=== PATIENT | female | born 1980 | race Hispanic/Latino ===

== ENCOUNTER 2020-11-20 12:12 | Emergency (ER) | payer BC ==
[2020-11-20 13:48] LABS: Absolute Lymphocytes (CBC) 1.4 K/uL (0.7-4.9); Basophils % 0.3 % (0-1.3); Hematocrit 36.6 % (36.0-45.0); Lymphocytes % 22.6 % (15.3-44.8); MPV 8.5 fL (7.6-11.3); RBC Red Blood Cell Count 4.41 M/uL (3.86-4.86)
[2020-11-20 14:06] LABS: Protime INR 1.09
[2020-11-20 14:07] LABS: ALT/SGPT 98 U/L (12-78); AST/SGOT 68 U/L (15-37); Albumin 2.6 g/dL (3.4-5.0); Alkaline Phosphatase 142 U/L (45-117); BUN Blood Urea Nitrogen 7 mg/dL (7-18); Bicarbonate 24 mmol/L (21-32); Bilirubin Direct 0.3 mg/dL (0-0.2); Bilirubin Total 0.5 mg/dL (0.2-1.0); Ferritin 403.9 ng/mL (8-388); Glucose Level 124 mg/dL (74-106); Lipase 158 U/L (73-393); Potassium 3.8 mmol/L (3.5-5.1); Sodium Level 142 mmol/L (136-145); Troponin (Emerg Dept Use Only) < 0.02 ng/mL (0.0-0.045)
--- NOTE | 2020-11-20 14:11 | RAD REPORT ---
EXAM DESCRIPTION: RAD - Chest Single View - 11/20/2020 1:03 pm CLINICAL HISTORY: SOB, COVID positive November 11 COMPARISON: None TECHNIQUE: AP portable chest image was obtained 11/20/2020 1:03 pm . FINDINGS: No dense mass or consolidations seen. Interstitial and hazy alveolar opacities are present in the right lower lung field. This is most likely a mild pneumonia. Pattern is not classic for COVI D-19 pneumonia though that is the most likely etiology given the provided history. Heart and vasculat ure are normal. No measurable pleural effusion and no pneumothorax. No acute bony abnormality seen. N o acute aortic findings suspected. IMPRESSION: Mild right lung base pneumonia. This is most likely atypical presentation of COVID-19 pn eumonia.
[2020-11-20] MEDS ORDERED: METHYLPREDNISOLONE 125 MG INJ ONE (14:14)
[2020-11-20] MEDS ORDERED: CASIRIVIMAB/IMDEVIMAB 10 ML VIAL ONE (17:16)
[2020-11-20] MEDS ORDERED: NA CHLORIDE 0.9% 250 ML ONE (17:19)
--- NOTE | 2020-11-20 17:26 | ER ---
Nurse's Notes [facility] Name: Stacy Nicholson Age: 40 yrs Sex: Female : 1980 Arrival Date: 11/20/2020 Time: 12:17 Bed 13 Private MD: Diagnosis: Pneumonia due to SARS-associated coronavirus;Influenza B Presentation: 11/20 12:33 Chief complaint: Patient states: Increased SOB Covid + 11/11. Coronavirus screen: kg Vaccine status: Patient reports being unvaccinated. Ebola Screen: Patient negative for fever greater than or equal to 101.5 degrees Fahrenheit, and additional compatible Ebola Virus Disease symptoms Patient denies exposure to infectious person. Patient denies travel to an Ebola-affected area in the 21 days before illness onset. Initial Sepsis Screen: Does the patient meet any 2 criteria? No. Patient's initial sepsis screen is negative. Does the patient have a suspected source of infection? No. Patient's initial sepsis screen is negative. Risk Assessment: Do you want to hurt yourself or someone else? Patient reports no desire to harm self or others. Onset of symptoms was November 11, 2020. 12:33 Method Of Arrival: Ambulatory kg 12:33 Acuity: HARI 3 kg 12:45 Coronavirus screen: Client denies travel out of the [place] in the last 14 days. shortness kg of breath, Client presents with at least one sign or symptom that may indicate coronavirus-19. Standard/surgical mask placed on the client. Provider contacted for isolation considerations. Client reports previous positive COVID test result. Date of collection: November 11, 2020. Triage Assessment: 12:46 General: Appears uncomfortable, Behavior is calm, cooperative, appropriate for age, kg quiet. 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 - Social history:: Smoking status: Patient denies any tobacco usage or history of. Screenin:47 Abuse screen: Denies threats or abuse. Denies injuries from another. Nutritional kg screening: No deficits noted. Tuberculosis screening: No symptoms or risk factors identified. Fall Risk None identified. Assessment: 12:47 Respiratory: Airway is patent Respiratory effort is labored, shallow. kg 13:11 Pain: Denies pain. aj2 13:12 Pain: Denies pain. Cardiovascular: No deficits noted. Rhythm is sinus rhythm. aj2 Respiratory: No deficits noted. Airway is patent. 14:03 General: Appears in no apparent distress. comfortable, Behavior is calm, cooperative, aj2 appropriate for age. Respiratory: No deficits noted. Airway is patent. 15:15 Respiratory: Airway is patent. aj2 17:30 Reassessment: Pt currently receiving Regen-COV, will be discharged after infusion sv complete. 18:26 Reassessment: Patient appears in no apparent distress at this time. Patient and/or aj2 family updated on plan of care and expected duration. Pain level reassessed. Patient is alert, oriented x 3, equal unlabored respirations, skin warm/dry/pink. Patient states feeling better. General: Appears in no apparent distress. comfortable, Behavior is calm, cooperative. Respiratory: Airway is patent. 18:29 Reassessment: Regen-Cov infusing. No adverse reactions noted. Nursing staff will aj2 continue to monitor.. Vital Signs: 12:33 BP 104 / 66; Pulse 96; Resp 20; Temp 97.8(TE); Pulse Ox 91% on R/A; Weight 74.84 kg kg (R); Height 5 ft. 1 in. (154.94 cm) (R); Pain 8/10; 13:12 BP 99 / 60; Pulse 84; Resp 20; Temp 97.8; Pulse Ox 96% ; aj2 14:03 BP 108 / 71; Pulse 81; Resp 18; Temp 97.8; Pulse Ox 100% ; aj2 15:15 BP 90 / 72; Pulse 87; Resp 20; Temp 97.8; Pulse Ox 100% on 2 lpm NC; aj2 18:26 BP 115 / 69; Pulse 77; Resp 18; Temp 98.2; Pulse Ox 100% on 2 lpm NC; aj2 18:48 BP 118 / 71; Pulse 82; Resp 18; Temp 98.2; Pulse Ox 96% on R/A; aj2 12:33 Body Mass Index 31.18 (74.84 kg, 154.94 cm) kg Vitals: 14:03 Cardiac Rhythm Assessment Sinus rhythm. aj2 15:15 Cardiac Rhythm Assessment Sinus rhythm. aj2 ED Course: 12:17 Patient arrived in ED. mr 12:36 Triage completed. kg 12:39 Tayo Salazar NP is PHCP. pm1 12:39 Chad Heard MD is Attending Physician. pm1 12:39 Nate Santacruz MD is Attending Physician. pm1 12:47 Patient has correct armband on for positive identification. kg 12:47 No provider procedures requiring assistance completed. kg 13:03 CXR XRAY In Process Unspecified. EDMS 13:04 Manuelito Rod is Primary Nurse. aj2 13:12 No apparent distress. Resting quietly. aj2 13:12 Patient has correct armband on for positive identification. aj2 13:51 BMP Sent. aj2 13:51 Blood Culture Adult (2) Sent. aj2 13:51 C-Reactive Protein Sent. aj2 13:51 CBC with Diff Sent. aj2 13:51 D-Dimer Sent. aj2 13:52 Flu Sent. aj2 13:52 Ferritin Sent. aj2 13:52 LFT's Sent. aj2 13:52 Lactate Sent. aj2 13:52 Lipase Sent. aj2 13:52 PT-INR Sent. aj2 13:52 Procalcitonin Sent. aj2 13:52 Ptt, Activated Sent. aj2 13:52 Strep Sent. aj2 13:52 Troponin (emerg Dept Use Only) Sent. aj2 13:55 EKG done. sv 14:01 Flu Sent. aj2 14:01 Strep Sent. aj2 14:03 No apparent distress. Resting quietly. aj2 14:03 Inserted saline lock: 20 gauge in left antecubital area, using aseptic technique. aj2 14:19 Notified Nurse Practitioner and/or Physician Stepdown Nurse of a critical lab result(s), sv D-dimer-586. 15:00 Throat Culture Sent. aj2 15:15 No apparent distress. Resting quietly. aj2 15:15 IV is patent, is intact. aj2 17:30 Regen-COV consent signed. sv 18:24 PHCP role handed off by Tayo Salazar NP [facility] 18:24 Devin Dumas PA is PHCP. [facility] 18:26 No apparent distress. Resting quietly. aj2 18:26 IV is patent, is intact. aj2 18:48 Arm band placed on. aj2 Administered Medications: 13:20 Drug: SOLU-Medrol (methylPrednisoLONE) 125 mg Route: IVP; Site: left antecubital; aj2 17:35 Drug: REGEN-COV Dose Pack 120 mg/mL-120 mg/mL (EUA) 600 mg Route: IV; Rate: calculated sv rate; Site: left antecubital; Outcome: 17:25 Discharge ordered by MD. pm1 19:14 Patient left the ED. cw2 Signatures: Dispatcher [employer] EDMS Sofy Witt RN RN sv Mickail, Joel, PA PA [facility] Melissa Selby mr MartinTayo, CALCINER FEEDER CALCINER FEEDER pm1 Char Metcalf RN RN Manuelito Casillas aj2 Raul Corral RN RN cw2 Corrections: (The following items were deleted from the chart) 13:53 13:52 UA MICROSCOPIC+U.LAB.BRZ drawn and sent. 2 EDMS
--- NOTE | 2020-11-20 17:26 | EDPHYS ---
Physician Documentation [facility] Name: Stacy Nicholson Age: 40 yrs Sex: Female : 1980 Arrival Date: 11/20/2020 Time: 12:17 Bed 13 Private MD: ED Physician Nate Santacruz HPI: 11/20 12:52 This 40 yrs old Female presents to ER via Ambulatory with complaints of pm1 Shortness Of Breath. 12:52 The patient has shortness of breath at rest. Onset: The symptoms/episode began/occurred pm1 3 day(s) ago. Duration: The symptoms are continuous, and are steadily getting worse. The patient's shortness of breath is aggravated by nothing, is alleviated by nothing. Associated signs and symptoms: Pertinent positives: non-productive cough, fever, Pertinent negatives: chest pain. Severity of symptoms: in the emergency department the symptoms are worse. The patient has not experienced similar symptoms in the past. The patient has not recently seen a physician. Patient presents to the ER with complaints of shortness of breath for the past 3 days. Patient with onset of Covid symptoms 10 days ago cough body aches and fever. Patient diagnosed with Covid 9 days ago. Patient retested for Covid on Saturday with a positive result. Patient had an appointment to receive monoclonal antibody therapy at [facility] on the same day, however she did not receive it. Patient would like to receive the monoclonal antibody therapy here today. 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 - Social history:: Smoking status: Patient denies any tobacco usage or history of. ROS: 12:52 Cardiovascular: Negative for chest pain, palpitations, and edema. pm1 12:52 Abdomen/GI: Negative for abdominal pain, nausea, vomiting, diarrhea, and constipation, Back: Negative for injury and pain, MS/Extremity: Negative for injury and deformity, Skin: Negative for injury, rash, and discoloration, Neuro: Negative for headache, weakness, numbness, tingling, and seizure. 12:52 Constitutional: Positive for body aches, fever, Negative for poor PO intake. 12:52 Respiratory: Positive for cough, shortness of breath. 12:52 All other systems are negative. Exam: 12:52 Constitutional: This is a well developed, well nourished patient who is awake, alert, pm1 and in no acute distress. Head/Face: Normocephalic, atraumatic. 12:52 Back: No spinal tenderness. No costovertebral tenderness. Full range of motion. Skin: Warm, dry with normal turgor. Normal color with no rashes, no lesions, and no evidence of cellulitis. MS/ Extremity: Pulses equal, no cyanosis. Neurovascular intact. Full, normal range of motion. 12:52 Eyes: Exam is negative for acute changes, Extraocular movements: no acute changes, Conjunctiva: no acute changes, no injection. 12:52 ENT: Exam is negative for acute changes, Mouth: no acute changes, Lips: normal, moist, Oral mucosa: normal, pink and intact, moist. 12:52 Neck: Exam negative for acute changes, ROM/movement: is normal, is supple. 12:52 Cardiovascular: Exam negative for acute changes, Rate: normal, Rhythm: regular, Pulses: no pulse deficits are appreciated, Heart sounds: normal, normal S1and S2. 12:52 Respiratory: Exam negative for acute changes, respiratory distress, shortness of breath, Breath sounds: are clear throughout. 12:52 Abdomen/GI: Inspection: abdomen appears normal, Palpation: abdomen is soft and non-tender, in all quadrants. 12:52 Neuro: Exam negative for acute changes, Orientation: is normal, Mentation: is normal, Motor: is normal, moves all fours. Vital Signs: 12:33 BP 104 / 66; Pulse 96; Resp 20; Temp 97.8(TE); Pulse Ox 91% on R/A; Weight 74.84 kg kg (R); Height 5 ft. 1 in. (154.94 cm) (R); Pain 8/10; 13:12 BP 99 / 60; Pulse 84; Resp 20; Temp 97.8; Pulse Ox 96% ; aj2 14:03 BP 108 / 71; Pulse 81; Resp 18; Temp 97.8; Pulse Ox 100% ; aj2 15:15 BP 90 / 72; Pulse 87; Resp 20; Temp 97.8; Pulse Ox 100% on 2 lpm NC; aj2 18:26 BP 115 / 69; Pulse 77; Resp 18; Temp 98.2; Pulse Ox 100% on 2 lpm NC; aj2 18:48 BP 118 / 71; Pulse 82; Resp 18; Temp 98.2; Pulse Ox 96% on R/A; aj2 12:33 Body Mass Index 31.18 (74.84 kg, 154.94 cm) kg MDM: 12:43 Patient medically screened. pm1 16:25 Data reviewed: lab test result(s), I have discussed the patient's presentation/case pm1 with the attending Emergency Department Physician; and as a result, I will Patient withouot clinical presentation and suspicion for PE. Elevated D-dimer from covid. Patient was not able to get monoclonal antibiodies on Saturday. She would like to receive them here. . 16:37 Counseling: I had a detailed discussion with the patient and/or guardian regarding: the pm1 historical points, exam findings, and any diagnostic results supporting the discharge/admit diagnosis, lab results, radiology results, the need for outpatient follow up, to return to the emergency department if symptoms worsen or persist or if there are any questions or concerns that arise at home. 11/20 12:52 Order name: BMP; Complete Time: 14:14 pm11/20 12:52 Order name: Blood Culture Adult (2) pm1 11/20 12:52 Order name: C-Reactive Protein; Complete Time: 14:14 11/20 12:52 Order name: CBC with Diff; Complete Time: 14:14 pm11/20 12:52 Order name: D-Dimer; Complete Time: 14:33 pm11/20 12:52 Order name: Ferritin; Complete Time: 14:14 pm11/20 12:52 Order name: Flu; Complete Time: 14:33 pm11/20 12:52 Order name: LFT's; Complete Time: 14:14 pm11/20 12:52 Order name: Lactate; Complete Time: 14:14 pm11/20 12:52 Order name: Lipase; Complete Time: 14:14 pm11/20 12:52 Order name: PT-INR; Complete Time: 14:33 pm11/20 12:52 Order name: Procalcitonin; Complete Time: 14:33 pm11/20 12:52 Order name: Ptt, Activated; Complete Time: 14:33 pm11/20 12:52 Order name: Strep; Complete Time: 14:33 pm11/20 12:52 Order name: Troponin (emerg Dept Use Only); Complete Time: 14:14 pm11/20 12:52 Order name: CXR XRAY; Complete Time: 14:14 pm11/20 12:52 Order name: EKG; Complete Time: 12:53 pm11/20 12:52 Order name: Cardiac monitoring; Complete Time: 13:51 pm11/20 12:52 Order name: Droplet/Contact Precautions; Complete Time: 13:51 pm11/20 12:52 Order name: EKG - Nurse/Tech; Complete Time: 14:00 pm11/20 12:52 Order name: IV Start; Complete Time: 13:51 11/20 12:52 Order name: Labs collected and sent; Complete Time: 13:51 pm11/20 12:52 Order name: O2 Per Protocol; Complete Time: 13:51 pm11/20 12:52 Order name: O2 Sat Monitoring; Complete Time: 13:51 11/20 12:52 Order name: Urine Dipstick-Ancillary (obtain specimen) 11/20 12:52 Order name: Urine Test (obtain specimen) 11/20 14:29 Order name: Throat Culture EDMS Administered Medications: 13:20 Drug: SOLU-Medrol (methylPrednisoLONE) 125 mg Route: IVP; Site: left antecubital; aj2 17:35 Drug: REGEN-COV Dose Pack 120 mg/mL-120 mg/mL (EUA) 600 mg Route: IV; Rate: calculated sv rate; Site: left antecubital; Disposition Summary: 11/20/20 17:25 Discharge Ordered Location: Home pm1 Problem: new pm1 Symptoms: have improved pm1 Condition: Stable pm1 Diagnosis - Pneumonia due to SARS-associated coronavirus pm1 - Influenza B pm1 Followup: pm1 - With: Emergency Department - When: As needed - Reason: Worsening of condition Followup: pm1 - With: Private Physician - When: 2 - 3 days - Reason: Recheck today's complaints, Continuance of care, Re-evaluation by your physician Discharge Instructions: - Discharge Summary Sheet pm1 - Influenza, Adult pm1 - COVID-19 pm1 - COVID-19 Frequently Asked Questions pm1 - 10 Things You Can Do to Manage Your COVID-19 Symptoms at Home - [facility] pm1 Forms: - Medication Reconciliation Form pm1 - Thank You Letter pm1 - Antibiotic Education pm1 - Prescription Opioid Use pm1 Addendum: 11/25/2020 04:35 Co-signature as Attending Physician, Nate serra a2 Signatures: Dispatcher [employer] Sofy Reid, RN RN Tayo Mendieta NP NEURO OPHTHALMOLOGIST pm1 Nate Santacruz MD MD mt2 Char Metcalf RN RN kg Manuelito Rod2 Corrections: (The following items were deleted from the chart) 11/20 13:53 12:53 UA MICROSCOPIC+U.LAB.BRZ ordered. EDFL EDMS
[2020-11-20 19:48] VITALS: TEMP 98.2
[2020-11-20 19:50] VITALS: BP 118/71; O2SAT 96
== END 2020-11-20 19:14 | disposition home or self-care (01) ==
LOC: ER 12:12
DX: U07.1 COVID-19 (principal); J12.82 Pneumonia due to coronavirus disease 2019; J10.1 Influenza due to other identified influenza virus with other respiratory manifestations; F41.9 Anxiety disorder, unspecified
CPT/HCPCS: 93005; 87040 ×2; 87070; 85025; 80048; 36415; 85610; 85379; 80076; 87081; 83605; 85730; 84484; 82728; 83690; 84145; 86140; 87804 ×2; 71045; 96375; 96374; 99284; J7050; J2930